=== PATIENT | male | born 1995 ===

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

== ENCOUNTER 2017-03-15 10:54 | Emergency (ER) | payer OTHER ==
[2017-03-15 12:11] VITALS: BP 122/54
--- NOTE | 2017-03-15 13:50 | UC ---
Hand/Wrist HPI - HPI Summary HPI Summary: Pt reports that he was diagnosed with morales bite in left hand fingers 1-5 on February 25 at out of town ER. Pt reports that the tips of finger 2 and 5 remain numb and tingling. - History Of Current Complaint Chief Complaint: UCUpperExtremity Stated Complaint: LEFT HAND COMPLAINT Time Seen by Provider: 03/15/17 13:23 Hx Obtained From: Patient ?: No Onset/Duration: Gradual Onset, Lasting Weeks, Still Present Severity Initially: Moderate Severity Currently: Mild Character Of Pain: Burning Alleviating Factor(s): Nothing Associated Signs And Symptoms: Positive: Numbness/Tingling, Other - peeling skin Related History: Dominant Hand Right, Other: - frostbite - Risk Factors Compartment Syndrome Risk Factors: Paresthesias, Pallor - Allergies/Home Medications Allergies/Adverse Reactions: Allergies Allergy/AdvReac Type Severity Reaction Status Date / Time No Known Allergies Allergy Verified 03/15/17 12:11 Home Medications: Home Medications NK [No Home Medications Reported] 03/15/17 [History Confirmed 03/15/17] PMH/Surg Hx/FS Hx/Imm Hx Previously Healthy: Yes - Surgical History Surgical History: Yes Surgery Procedure, Year, and Place: Tonsillectomy - Family History Known Family History: Positive: Cardiac Disease - Social History Occupation: Student Lives: Dormitory/Roommates Alcohol Use: None Substance Use Type: None Smoking Status (MU): Never Smoked Tobacco Have You Smoked in the Last Year: No Review of Systems Constitutional: Negative Skin: Other - pale, peeling skin, blisters intact on pads of fingers on left hand 2 and 5 Eyes: Negative ENT: Negative Respiratory: Negative Cardiovascular: Negative Gastrointestinal: Negative Genitourinary: Negative Motor: Negative Neurovascular: Decreased Sensation - left finger 2 and 5 tips Musculoskeletal: Negative Neurological: Negative Psychological: Negative Is Patient Immunocompromised?: No All Other Systems Reviewed And Are Negative: Yes Physical Exam Triage Information Reviewed: Yes Appearance: Well-Appearing Vital Signs: Initial Vital Signs Temp 98 F 03/15/17 12:05 Pulse 69 03/15/17 12:05 Resp 18 03/15/17 12:05 BP 122/54 03/15/17 12:05 Pulse Ox 100 03/15/17 12:05 Vital Signs Reviewed: Yes Eye Exam: Normal ENT Exam: Normal Dental Exam: Normal Neck exam: Normal Respiratory: Positive: No respiratory distress Musculoskeletal Exam: Normal Neurological Exam: Normal Psychological Exam: Normal Skin Exam: Other - left fingers 2-5 pale, warm, and peeling skin. cap refill in fingers 2 and 5 is sluggish. Hand/Wrist Course/Dx - Course Course Of Treatment: pt was referred to orthopedics for further evaluation. 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 pt was referred to orthopedics for further evaluation. 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
== END 2017-03-15 13:56 | disposition home or self-care (01) ==
LOC: UCCORT 10:54
DX: T33.532D Superficial frostbite of left finger(s), subsequent encounter (principal); X31.XXXD Exposure to excessive natural cold, subsequent encounter; Y92.9 Unspecified place or not applicable
CPT/HCPCS: 99211; G0463